=== PATIENT | female | born 1955 | race Caucasian/White ===

== ENCOUNTER 2017-04-04 09:40 | Emergency (ER) | payer OTHER ==
[~2017-04-04] VITALS: Ht 172.7 cm; Wt 78.0 kg
[~2017-04-04 09:40] MED LIST: CIPRO500 MG PO; ELIMITE60 GM TOP; GABAPENTIN300 MG PO; HYDROCODON-ACE1 EAC8 PO; IBUPROFEN600 MG PO; IBUPROFEN800 MG PO; METRONIDAZOLE500 MG PO; NORCO 5-325 TA1 EACH PO; PREDNISONE20 MG PO; REMERON15 M1 PO; ULTRAM50 MG PO; VALIUM5 MG PO
[2017-04-04] MEDS ORDERED: OMEPRAZOLE20 M1 PO (09:53)
[2017-04-04] MEDS ORDERED: HYDROCHLOROTHIA25 MG PO (09:53)
[2017-04-04] MEDS ORDERED: LISINOPRIL20 MG PO (09:53)
[2017-04-04] MEDS ORDERED: CILOXAN5 ML OS (09:58)
== END 2017-04-04 10:08 | disposition home or self-care (01) ==
LOC: ED 09:40
DX: H10.9 Unspecified conjunctivitis (principal); M32.9 Systemic lupus erythematosus, unspecified; H91.92 Unspecified hearing loss, left ear; Z90.710 Acquired absence of both cervix and uterus; Z88.0 Allergy status to penicillin; Z88.2 Allergy status to sulfonamides; Z88.4 Allergy status to anesthetic agent; Z91.038 Other insect allergy status
CPT/HCPCS: 99283

== ENCOUNTER 2017-06-27 17:40 | Emergency (ER) | payer OTHER ==
[~2017-06-27] VITALS: Ht 172.7 cm; Wt 78.0 kg
[~2017-06-27 17:40] MED LIST changes: +CILOXAN5 ML OS; +HYDROCHLOROTHIA25 MG PO; +LISINOPRIL20 MG PO; +OMEPRAZOLE20 M1 PO
[2017-06-27] MEDS ORDERED: BP MED (18:01)
[2017-06-27] MEDS ORDERED: IBUPROFEN600 MG PO (19:14)
[2017-06-27] MEDS ORDERED: NORCO 5-325 TA1 EACH PO (19:14)
== END 2017-06-27 19:27 | disposition home or self-care (01) ==
LOC: ED 17:40
DX: S16.1XXA Strain of muscle, fascia and tendon at neck level, initial encounter (principal); F32.9 Major depressive disorder, single episode, unspecified; Z90.710 Acquired absence of both cervix and uterus; Z88.0 Allergy status to penicillin; Z88.2 Allergy status to sulfonamides; Z91.038 Other insect allergy status; Z88.8 Allergy status to other drugs, medicaments and biological substances; Z79.899 Other long term (current) drug therapy; X50.9XXA Other and unspecified overexertion or strenuous movements or postures, initial encounter
CPT/HCPCS: 99283

== ENCOUNTER 2017-08-18 09:25 | Emergency (ER) | payer OTHER ==
[~2017-08-18] VITALS: Ht 172.7 cm; Wt 77.1 kg
[~2017-08-18 09:25] MED LIST changes: +BP MED
== END 2017-08-18 09:41 | disposition home or self-care (01) ==
LOC: ED 09:25
DX: R05 Cough (principal); H92.02 Otalgia, left ear; R51 Headache; J02.9 Acute pharyngitis, unspecified

== ENCOUNTER 2017-10-29 13:57 | Emergency (ER) | payer OTHER ==
[~2017-10-29] VITALS: Ht 172.7 cm; Wt 82.1 kg
[2017-10-29] MEDS ORDERED: ZOFRAN4 MG PO (16:53)
== END 2017-10-29 17:23 | disposition home or self-care (01) ==
LOC: ED 13:57
DX: J10.1 Influenza due to other identified influenza virus with other respiratory manifestations (principal); R55 Syncope and collapse; I10 Essential (primary) hypertension; Z91.018 Allergy to other foods; Z88.8 Allergy status to other drugs, medicaments and biological substances; Z88.2 Allergy status to sulfonamides; Z91.038 Other insect allergy status; Z91.030 Bee allergy status; Z88.4 Allergy status to anesthetic agent; Z79.899 Other long term (current) drug therapy
CPT/HCPCS: 71046; 80053; 83605; 84484; 85025; 87040; 87502; 99283; J7030

== ENCOUNTER 2019-03-13 19:29 | Emergency (ER) | payer MEDICARE, OTHER ==
[~2019-03-13] VITALS: Ht 172.7 cm; Wt 78.0 kg
[~2019-03-13 19:29] MED LIST changes: +ZOFRAN4 MG PO
[2019-03-13] MEDS ORDERED: KAPSPARGO SPRI100 MG PO (19:43)
[2019-03-13] MEDS ORDERED: NORCO 5-325 TA1 EACH PO (20:35)
[2019-03-13] MEDS ORDERED: MELOXICAM15 MG PO (20:35)
== END 2019-03-13 20:52 | disposition home or self-care (01) ==
LOC: ED 19:29
DX: M25.571 Pain in right ankle and joints of right foot (principal); F32.9 Major depressive disorder, single episode, unspecified; I10 Essential (primary) hypertension; Z91.018 Allergy to other foods; Z88.0 Allergy status to penicillin; Z88.2 Allergy status to sulfonamides; Z91.030 Bee allergy status; Z88.6 Allergy status to analgesic agent; Z79.899 Other long term (current) drug therapy
CPT/HCPCS: 73610; 73630; 99283

== ENCOUNTER 2021-02-08 18:13 | Emergency (ER) | payer MEDICARE, OTHER ==
[~2021-02-08] VITALS: Ht 172.7 cm; Wt 81.2 kg
[~2021-02-08 18:13] MED LIST changes: +CYMBALTA30 MG PO; +KAPSPARGO SPRI100 MG PO; +MELOXICAM15 MG PO; +TYLENOL EXTRA500 MG PO; +VITAMIN D50000 UNI1 PO; +ZOLOFT100 MG PO
[2021-02-08] MEDS ORDERED: DICLOFENAC SODI75 MG PO (20:27)
[2021-02-08] MEDS ORDERED: CYCLOBENZAPRINE10 MG PO (20:27)
== END 2021-02-08 20:45 | disposition home or self-care (01) ==
LOC: ED 18:13
DX: M79.604 Pain in right leg (principal); I10 Essential (primary) hypertension; Z91.018 Allergy to other foods; Z88.0 Allergy status to penicillin; Z88.2 Allergy status to sulfonamides; Z91.030 Bee allergy status; Z79.899 Other long term (current) drug therapy
CPT/HCPCS: 73502; 99283-25

== ENCOUNTER 2023-02-02 07:49 | Emergency (ER) | payer MEDICARE ==
[~2023-02-02] VITALS: Ht 172.7 cm; Wt 90.9 kg
[~2023-02-02 07:49] MED LIST changes: +CYCLOBENZAPRINE10 MG PO; +DICLOFENAC SODI75 MG PO
[2023-02-02 09:20] VITALS: BP 160/91
== END 2023-02-02 09:20 | disposition home or self-care (01) ==
LOC: ED 07:49
DX: M79.671 Pain in right foot (principal); I10 Essential (primary) hypertension; Z88.0 Allergy status to penicillin; Z88.2 Allergy status to sulfonamides; Z91.030 Bee allergy status; Z91.018 Allergy to other foods
CPT/HCPCS: 73650

== ENCOUNTER 2023-02-26 13:57 | Emergency (ER) | payer OTHER, MEDICARE ==
[~2023-02-26] VITALS: Ht 172.7 cm; Wt 91.7 kg
--- OUTSIDE RECORDS SUMMARY | 2023-02-26 14:01 | XMS ---
PreManage Notification: JAMEL JUAREZ Security Intra[employer] Events No recent Security Events currently on file CRITERIA MET - [facility] - 2 Visits in 30 Days [facility]ONE: Unknown Demetrio has no Care Guidelines for this patient. E.Melanie VISIT COUNT (12 MO.) 2 [facility] TOTAL 2 NOTE: Visits indicate total known visits. ED/UCC VISIT TRACKING (12 MO.) 02/26/2023 13:58 [facility] [place] TYPE: Emergency COMPLAINT: - HEAD/UPPER BACK/BODY INJURY 02/02/2023 07:50 [facility] [place] TYPE: Emergency COMPLAINT: - EXTREMITY PAIN DIAGNOSES: - Allergy status to penicillin - Allergy status to sulfonamides - Allergy to other foods - Bee allergy status - Essential (primary) hypertension - Pain in right foot INPATIENT VISIT TRACKING (12 MO.) No inpatient visits to display in this time frame [email or web address]
[2023-02-26 16:00] VITALS: BP 139/89
== END 2023-02-26 16:00 | disposition home or self-care (01) ==
LOC: ED 13:57
DX: S16.1XXA Strain of muscle, fascia and tendon at neck level, initial encounter (principal); S00.03XA Contusion of scalp, initial encounter; W01.10XA Fall on same level from slipping, tripping and stumbling with subsequent striking against unspecified object, initial encounter; I10 Essential (primary) hypertension; Z91.018 Allergy to other foods; Z88.0 Allergy status to penicillin; Z88.2 Allergy status to sulfonamides; Z91.030 Bee allergy status
CPT/HCPCS: 70450; 72125; 99283-25